=== PATIENT | female | born 1945 | race American Indian/Alaskan Native ===

== ENCOUNTER 2018-02-21 12:21 | Outpatient (CLI) | payer MEDICARE ==
--- NOTE | 2018-02-21 14:11 | Ultrasound Report ---
FINAL REPORT EXAM: US RENAL BILAT HISTORY: ACUTE KIDNEY INJURY TECHNIQUE: Ultrasound examination of the kidneys PRIORS: None. FINDINGS: Visualized right kidney: 9.4 x 4.5 x 4.5 cm. Visualized left kidney: 8.6 x 4.2 x 3.5 cm. Renal cortical thickness is 12 mm on the right and 14 mm on the left Focal lesion: None Calculus: Nonspecific small echogenic foci in the right kidney may be nonobstructing calculi Hydronephrosis: None Perinephric fluid: None Urinary bladder: No evidence of focal abnormality in visible portion. IMPRESSION: Nonspecific small echogenic foci in the right kidney may be nonobstructing calculi
== END 2018-02-21 12:22 | disposition home or self-care (01) ==
LOC: US 12:21
PROVIDERS: ATTEND Internal Medicine Nephrology
DX: N17.9 Acute kidney failure, unspecified (principal)
CPT/HCPCS: 76770